=== PATIENT | male | born 1940 | race Caucasian/White ===

== ENCOUNTER 2018-05-08 05:52 | Emergency (ER) | payer MEDICARE ==
[~2018-05-08] VITALS: Ht 172.7 cm; Wt 91.8 kg
[~2018-05-08 05:52] MED LIST: BLOOD PRESSURE MED
--- NOTE | 2018-05-08 06:10 | EKG ---
[address] [address] Test Date: 2018-05-08 Test Time: 06:02:50 Pat Name: OVI CA Department: Room: Gender: M Food Safety Coordinator: ORTEGA : 1940 Requested By: MONIQUE KRUGER Order Number: [id number] Reading MD: Steve Persaud MD Measurements Intervals [place] Rate: 89 P: 40 IA: 192 QRS: -8 QRSD: 74 T: 47 QT: 350 QTc: 432 Interpretive Statements SINUS RHYTHM Electronically Signed On 05-08-2018 10:19:13 TELECOMMUNICATIONS FIELD ENGINEER by Steve Persaud MD
--- NOTE | 2018-05-08 06:15 | PHYS DOC ---
Past History Past Medical History: High Cholesterol, Hypertension Past Surgical History: Other Alcohol Use: Occasionally Drug Use: None Adult General Chief Complaint Chief Complaint: DIZZY/LIGHT HEADED [facility] HPI 77-year-old male presents with dizziness. The patient woke up at 4:30 this morning with feeling of dizziness. He describes the dizziness as an off balance feeling. He further admits that things didn't seem in focus with his vision. The vision has improved but he still has the off balance feeling and a mild occipital headache. He was feeling short of breath, but this has resolved. He was feeling very slightly dizzy like this just before he went to bed. He is never had any CVAs or aneurysms in the past. She hasn't had an episode like this in the past so he is concerned about it. He has not been feeling ill in any other way. He denies fever or chills. He's had no change in bowel or bladder habits. No new or recent changes in medications. Review of Systems Review of Systems Constitutional: Denies fever or chills [] Eyes: Denies change in visual acuity, redness, or eye pain [] HENT: Denies nasal congestion or sore throat [] Respiratory: Denies cough or shortness of breath [] Cardiovascular: No additional information not addressed in HPI [] GI: Denies abdominal pain, nausea, vomiting, bloody stools or diarrhea [] : Denies dysuria or hematuria [] Musculoskeletal: Denies back pain or joint pain [] Integument: Denies rash or skin lesions [] Neurologic: Mild occipital headache, dizziness.[] Endocrine: Denies polyuria or polydipsia [] All other systems were reviewed and found to be within normal limits, except as documented in this note. Allergies Allergies Allergies Coded Allergies Type Severity Reaction Last Updated Verified No Known Drug Allergies 10/15/15 No Physical Exam Physical Exam Constitutional: Well developed, well nourished, no acute distress, non-toxic appearance. [] HENT: Normocephalic, atraumatic, bilateral external ears normal, oropharynx moist, no oral exudates, nose normal. [] Eyes: PERRLA, EOMI, conjunctiva normal, no discharge. [] Neck: Normal range of motion, no tenderness, supple, no stridor. [] Cardiovascular:Heart rate regular rhythm, no murmur [] Lungs & Thorax: Bilateral breath sounds clear to auscultation [] Abdomen: Bowel sounds normal, soft, no tenderness, no masses, no pulsatile masses. [] Skin: Warm, dry, no erythema, no rash. [] Back: No tenderness, no CVA tenderness. [] Extremities: No tenderness, no cyanosis, no clubbing, ROM intact, no edema. [] Neurologic: Alert and oriented X 3, normal motor function, normal sensory function, no focal deficits noted. [] Psychologic: Affect normal, judgement normal, mood normal. [] Current Patient Data Vital Signs Vital Signs Date Time Temp Pulse Resp B/P (MAP) Pulse Ox O2 Delivery O2 Flow Rate FiO2 05/08/18 05:59 97.7 94 20 98 Room Air EKG EKG Sinus rhythm, rate 89, normal axis, no ST elevations or depressions.[] Radiology/Procedures Radiology/Procedures [] Impressions: EXAM: CT HEAD WITHOUT CONTRAST. HISTORY: Dizziness, hypertension. TECHNIQUE: Computed tomography of the head was performed without intravenous contrast. COMPARISON: None. FINDINGS: There is no intracranial hemorrhage. Rea-white differentiation is preserved. Prominence of the lateral ventricles and hemispheric sulci indicates mild atrophy. . Incidental choroidal fissure cyst is noted on the left. The visualized paranasal sinuses appear clear. The orbits are unremarkable. The temporal bones are unremarkable. The calvarium reveals no suspicious lesions. IMPRESSION: 1. No acute intracranial findings. *One or more of the following individualized dose reduction techniques were utilized for this examination: 1. Automated exposure control. 2. Adjustment of the mA and/or kV according to patient size. 3. Use of iterative reconstruction technique. Electronically signed by: Kyler Vazquez MD (05/08/2018 6:51 AM) [facility] DICTATED AND SIGNED BY: CHILANGO VAZQUEZ MD DATE: 05/08/18 0649 CC: MONIQUE KRUGER DO; OH HUTTON MD Course & Med Decision Making Course & Med Decision Making Pertinent Labs and Imaging studies reviewed. (See chart for details) The patient's head CT is negative for acute findings. His chest x-ray had some central findings on the left and additional scattered density on the right. I personally reviewed the CT of the chest and appears similar. The official read is still pending. Orthostatic blood pressures are unremarkable. Urine is pending. I have given the patient 1 L normal saline. Patient's urinalysis unremarkable. We have given him a trial of meclizine to see if this helps with his symptoms. Patient is feeling a little bit better at this time. I do not see anything concerning in his workup at this point. With further conversation, the patient has had some increased nasal congestion and states that his ears feel "more plugged up ". His tinnitus is also been a little more strong since yesterday. He will try a decongestant at home. His tympanic membranes were normal. He is stable for discharge at this time. If any new or concerning symptoms develop she will return to the emergency room. [] Dragon Disclaimer Dragon Disclaimer This electronic medical record was generated, in whole or in part, using a voice recognition dictation system. Departure Departure: Impression: Primary Impression: Dizziness Disposition: 01 HOME, SELF-CARE Condition: STABLE Referrals: OH HUTTON MD (PCP) Patient Instructions: Dizziness, [id number] MONIQUE KRUGER DO May 08, 2018 06:15
[2018-05-08 06:20] LABS: BASO # 0.1 x10^3/uL (0.0-0.2); BASO % 1 % (0-3); EOS # 0.3 x10^3/uL (0.0-0.7); EOS % 4 % (0-3); HEMATOCRIT 47.6 % (39.0-53.0); HEMOGLOBIN 16.1 g/dL (13.0-17.5); LYMPH # 1.4 x10^3/uL (1.0-4.8); LYMPH % 19 % (24-48); MEAN CORPUSCULAR HEMOGLOBIN 31 pg (25-35); MEAN CORPUSCULAR HGB CONC 34 g/dL (31-37); MEAN CORPUSCULAR VOLUME 90 fL (79-100); MONO # 0.6 x10^3/uL (0.0-1.1); MONO % 8 % (0-9); NEUT # 4.8 x10^3uL (1.8-7.7); NEUT % 68 % (31-73); PLATELET COUNT 226 x10^3/uL (140-400); RED BLOOD COUNT 5.28 x10^6/uL (4.30-5.70); RED CELL DISTRIBUTION WIDTH 13.2 % (11.5-14.5); WHITE BLOOD COUNT 7.1 x10^3/uL (4.0-11.0)
[2018-05-08 06:35] LABS: ALBUMIN 4.1 g/dL (3.4-5.0); ALBUMIN/GLOBULIN RATIO 1.2 (1.0-1.7); CALCIUM 9.1 mg/dL (8.5-10.1); CREATININE 1.2 mg/dL (0.7-1.3); GFR 58.7; POTASSIUM 3.9 mmol/L (3.5-5.1); TOTAL BILIRUBIN 1.3 mg/dL (0.2-1.0); TOTAL PROTEIN 7.6 g/dL (6.4-8.2)
--- NOTE | 2018-05-08 06:55 | RAD ---
EXAM: CT HEAD WITHOUT CONTRAST. HISTORY: Dizziness, hypertension. TECHNIQUE: Computed tomography of the head was performed without intravenous contrast. COMPARISON: None. FINDINGS: There is no intracranial hemorrhage. Rea-white differentiation is preserved. Prominence of the lateral ventricles and hemispheric sulci indicates mild atrophy. . Incidental choroidal fissure cyst is noted on the left. The visualized paranasal sinuses appear clear. The orbits are unremarkable. The temporal bones are unremarkable. The calvarium reveals no suspicious lesions. IMPRESSION: 1. No acute intracranial findings. *One or more of the following individualized dose reduction techniques were utilized for this examination: 1. Automated exposure control. 2. Adjustment of the mA and/or kV according to patient size. 3. Use of iterative reconstruction technique. Electronically signed by: Kyler Vazquez MD (05/08/2018 6:51 AM) [facility]
[2018-05-08] MEDS ORDERED: IV NORMAL SALINE 1,000ML 1,000 ML IV ONE (07:00)
--- NOTE | 2018-05-08 08:03 | RAD ---
Examination: CHEST PA LATERAL History: Dizziness. Hx hypertension Comparison/Correlation: 07/07/2009 CT chest with contrast Findings: PA and lateral views of chest were obtained. Heart size and pulmonary vasculature are normal. No infiltrate or effusion. Calcified granulomas are present. Spurring of the thoracic spine noted. Impression: No infiltrate. Electronically signed by: Willy Estevez MD (05/08/2018 7:58 AM) [facility]
[2018-05-08] MEDS ORDERED: MECLIZINE 12.5 MG TABLET. PO STA (08:04)
[2018-05-08 08:46] LABS: BACTERIA,URINE 0 /HPF (0-FEW); BILIRUBIN,URINE NEG (NEG); CLARITY,URINE CLEAR; COLOR,URINE AMBER; GLUCOSE,URINE NEG (NEG); NITRITE,URINE NEG (NEG); RBC,URINE RARE /HPF (0-2); SQUAMOUS EPITHELIAL CELL,UR OCC /LPF; UROBILINOGEN,URINE 0.2 mg/dL (0.2 mg/dL); WBC,URINE 0 /HPF (0-4)
[2018-05-08 09:20] VITALS: BP 136/91
== END 2018-05-08 09:20 | disposition home or self-care (01) ==
LOC: ER 05:52
DX: R42 Dizziness and giddiness (principal); R51 Headache; R09.81 Nasal congestion; E78.00 Pure hypercholesterolemia, unspecified; I10 Essential (primary) hypertension
CPT/HCPCS: 36415; 70450; 71046; 80053; 81001; 84484; 85025; 93005; 96360; 96361; 99284; J8597; J7030

== ENCOUNTER 2020-06-10 10:01 | Emergency (ER) | payer MEDICARE, BC ==
[~2020-06-10] VITALS: Ht 172.7 cm; Wt 87.3 kg
--- NOTE | 2020-06-10 10:43 | PHYS DOC ---
Past History Past Medical History: High Cholesterol, Hypertension Past Surgical History: Other Additional Past Surgical Histo: right knee replacement; bilat carpal tunnel Alcohol Use: Occasionally Drug Use: None General Adult EDM: Chief Complaint: DIZZY/LIGHT HEADED HPI: HPI: Patient is a 79-year-old male coming in for "dizziness". Patient states that when he woke up about 3 hours prior to arrival he felt like the room was spinning. She has had intermittent flashes of headache denies any syncope. Has baseline history of tinnitus and hearing loss that he says is unchanged. Denies any recent illness has not had episodes in the past. Patient does state that the dizziness is worse with movement and better with rest. Does not take anything for it. Denies any other symptoms. Has had some nausea but not vomite d. Denies any recent illness in the past few months. Denies any ear pain or congestion. Review of Systems: Review of Systems: All other systems within normal limits except for as noted in the HPI Allergies: Allergies: Allergies Coded Allergies Type Severity Reaction Last Updated Verified No Known Drug Allergies 10/15/15 No Physical Exam: PE: Constitutional: Well developed, well nourished, no acute distress, non-toxic appearance. [] HENT: Normocephalic, atraumatic, bilateral external ears normal, bilateral TMs normal nose normal. [] Eyes: PERRLA, conjunctiva normal, no discharge. Extraocular was intact, no nystagmus to the right [] Neck: No rigidity, supple, no stridor. [] Cardiovascular: Regular rate and rhythm, brisk cap refill [] Lungs & Thorax: Non labored symmetric respirations, no tachypnea or respiratory distress [] Abdomen: Soft, nondistended. Skin: Warm, dry, no erythema, no rash. [] Back: Unremarkable Extremities: No deformities, range of motion grossly intact, no lower extremity edema [] Neurologic: Alert and oriented X 3, no focal deficits noted. No pronator drift, tremors with right [id number] but per patient and he has baseline tremor, left gswept-gr-jewh normal. Romberg negative. Unable to tandem walk. [] Psychologic: Affect normal, judgement normal, mood normal. [] Current Patient Data: Vital Signs: Vital Signs Date Time Temp Pulse Resp B/P (MAP) Pulse Ox O2 Delivery O2 Flow Rate FiO2 3/9/21 10:05 98.6 80 17 141/71 (94) 96 Room Air EKG: EKG: Sinus rhythm, heart rate 81 bpm, slight left axis deviation, no ST elevation or depression, no ectopy, normal intervals. [] Radiology/Procedures: Radiology/Procedures: EXAM: Head CT without contrast. HISTORY: Vertigo. TECHNIQUE: Computed tomographic images of the head were obtained without contrast. *One or more of the following individualized dose reduction techniques were utilized for this examination: 1. Automated exposure control. 2. Adjustment of the mA and/or kV according to patient size. 3. Use of iterative reconstruction technique. COMPARISON: 05/08/2018. FINDINGS: There is no acute or subacute extra-axial or intraparenchymal hemorrhage. There is no mass effect or midline shift. There is no hydrocephalus. There are areas of decreased attenuation within the cerebral white matter, nonspecific and likely related to chronic small vessel disease. There is cerebral volume loss. There is an incidental left choroid fissure cyst. There is right maxillary sinus wall thickening and mucosal thickening due to chronic sinusitis. The orbits and mastoid air cells are unremarkable. There is no calvarial lesion. IMPRESSION: 1. No acute intracranial finding. Note is made that MRI is more sensitive for acute infarction. 2. Bilateral cerebral white matter changes, most commonly due to chronic small vessel disease in a patient of this age. [] Heart Score: C/O Chest Pain: No Risk Factors: Risk Factors: DM, Current or recent (<one month) smoker, HTN, HLP, family history of CAD, obesity. Risk Scores: Score 0 - 3: 2.5% MACE over next 6 weeks - Discharge Home Score 4 - 6: 20.3% MACE over next 6 weeks - Admit for Clinical Observation Score 7 - 10: 72.7% MACE over next 6 weeks - Early Invasive Strategies Course & Med Decision Making: Course & Med Decision Making Pertinent Labs and Imaging studies reviewed. (See chart for details) Concern for posteriorcerebellar stroke. Patient symptoms not resolved with meclizine. Patient states he does not feel he has vertigo anymore but just feels unsteady on his feet. Concern for ataxia due to not will tolerate tandem walk. Accepted to [place] for MRI by Dr. Balderas [] Davi Disclaimer: Davi Disclaimer: This electronic medical record was generated, in whole or in part, using a voice recognition dictation system. Departure Departure: Impression: Primary Impression: Ataxia Disposition: 02 DC/TRF OTHER SHORT TERM HOS Condition: STABLE Referrals: OH HUTTON MD (PCP) OSCAR BUENROSTRO MD Jun 10, 2020 10:43
[2020-06-10] MEDS ORDERED: MECLIZINE 12.5 MG TABLET. PO ONE (10:45)
--- NOTE | 2020-06-10 10:56 | RAD ---
EXAM: Head CT without contrast. HISTORY: Vertigo. TECHNIQUE: Computed tomographic images of the head were obtained without contrast. *One or more of the following individualized dose reduction techniques were utilized for this examina tion: 1. Automated exposure control. 2. Adjustment of the mA and/or kV according to patient size. 3. Use of iterative reconstruction technique. COMPARISON: 05/08/2018. FINDINGS: There is no acute or subacute extra-axial or intraparenchymal hemorrhage. There is no mass effect or midline shift. There is no hydrocephalus. There are areas of decreased attenuation within the cerebral white matter, nonspecific and likely rel ated to chronic small vessel disease. There is cerebral volume loss. There is an incidental left chor oid fissure cyst. There is right maxillary sinus wall thickening and mucosal thickening due to chronic sinusitis. The o rbits and mastoid air cells are unremarkable. There is no calvarial lesion. IMPRESSION: 1. No acute intracranial finding. Note is made that MRI is more sensitive for acute infarction. 2. Bilateral cerebral white matter changes, most commonly due to chronic small vessel disease in a pa tient of this age. Electronically signed by: Tabitha Ellis MD (06/10/2020 10:53 AM) [email or web address]
[2020-06-10 11:07] LABS: BASO # 0.1 x10^3/uL (0.0-0.2); BASO % 2 % (0-3); EOS # 0.1 x10^3/uL (0.0-0.7); EOS % 1 % (0-3); HEMATOCRIT 46.7 % (39.0-53.0); HEMOGLOBIN 15.6 g/dL (13.0-17.5); LYMPH # 1.3 x10^3/uL (1.0-4.8); LYMPH % 25 % (24-48); MEAN CORPUSCULAR HEMOGLOBIN 31 pg (25-35); MEAN CORPUSCULAR HGB CONC 34 g/dL (31-37); MEAN CORPUSCULAR VOLUME 92 fL (79-100); MONO # 0.4 x10^3/uL (0.0-1.1); MONO % 8 % (0-9); NEUT # 3.3 x10^3uL (1.8-7.7); NEUT % 64 % (31-73); PLATELET COUNT 265 x10^3/uL (140-400); RED BLOOD COUNT 5.09 x10^6/uL (4.30-5.70); RED CELL DISTRIBUTION WIDTH 13.1 % (11.5-14.5); WHITE BLOOD COUNT 5.2 x10^3/uL (4.0-11.0)
[2020-06-10 11:16] LABS: CALCIUM 9.5 mg/dL (8.5-10.1); CREATININE 1.2 mg/dL (0.7-1.3); GFR 58.4; POTASSIUM 4.1 mmol/L (3.5-5.1)
[2020-06-10 11:22] LABS: ALBUMIN 3.9 g/dL (3.4-5.0); MAGNESIUM 2.3 mg/dL (1.8-2.4); TOTAL BILIRUBIN 1.1 mg/dL (0.2-1.0); TOTAL PROTEIN 7.8 g/dL (6.4-8.2)
--- NOTE | 2020-06-10 12:26 | EKG ---
[address] [address] Test Date: 2020-06-10 Test Time: 10:13:12 Pat Name: OVI CA Department: Room: Gender: M Medical Record Technician: PRASHANT : 1940 Requested By: OSCAR BUENROSTRO Order Number: [id number] Reading MD: Measurements Intervals [place] Rate: 81 P: 36 GA: 182 QRS: -13 QRSD: 74 T: 54 QT: 352 QTc: 414 Interpretive Statements SINUS RHYTHM LEFTWARD AXIS R-S TRANSITION ZONE IN V LEADS DISPLACED TO THE RIGHT OTHERWISE NORMAL ECG RI6.02 No previous ECG available for comparison
[2020-06-10 18:46] VITALS: BP 125/71
== END 2020-06-10 18:48 | disposition short-term general hospital (02) ==
LOC: ER 10:01
DX: R27.0 Ataxia, unspecified (principal); R51.9 Headache, unspecified; E78.00 Pure hypercholesterolemia, unspecified; I10 Essential (primary) hypertension; Z96.651 Presence of right artificial knee joint
CPT/HCPCS: 36415; 70450; 80053; 83735; 84484; 85025; 85610; 93005; 99285